=== PATIENT | female | born 1995 | race Caucasian/White ===

== ENCOUNTER 2023-02-21 15:07 | Outpatient (CLI) | payer OTHER, SELFPAY | END 2023-02-21 15:08 | disposition home or self-care (01) | LOC: AMB 02-25 21:01 | PROVIDERS: Visit Provider Family Medicine | DX: S99.912A Unspecified injury of left ankle, initial encounter (principal); V47.0XXA Car driver injured in collision with fixed or stationary object in nontraffic accident, initial encounter; Y92.410 Unspecified street and highway as the place of occurrence of the external cause | CPT/HCPCS: A0425; A0427 ==

== ENCOUNTER 2023-02-21 15:49 | Emergency (ER) | payer OTHER, SELFPAY ==
[2023-02-21] VITALS (22 sets, daily range): BP systolic 109–140; BP diastolic 58–95; PULSE 95–118; RESP 10–20; TEMP 37.1; O2SAT 96–100; BMI 30.7
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
[2023-02-21] MEDS: 0.9 % SODIUM CHLORIDE 1000 ml 1,000 ML IV (16:00)
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
[2023-02-21] MEDS: MORPHINE 4 MG/ML INJ IVP (16:18)
[2023-02-21] MEDS: ONDANSETRON 2 MG/ML inj 4 MG IVP (16:19)
[2023-02-21 17:00] LABS: Basophils Percent Auto 0.3 % (0.0-3.0); Eosinophils Percent Auto 0.3 % (0.0-7.0); Hematocrit 41.4 % (33.0-51.0); Hemoglobin* 13.1 gm/dL (12.0-16.0); Immature Granulocytes Pct Auto 0.7 %; Lymphocytes Percent Auto 13.6 % (20-44); Mean Corpuscular HGB Conc 32 gm/dL (32-36); Mean Corpuscular Hemoglobin 30 pg (26-34); Mean Corpuscular Volume 95 fL (80-100); Monocytes Percent Auto 4.6 % (0.0-11.0); Neutrophils Percent Auto 80.5 % (42.0-72.0); Platelet Count* 284 K/uL (140-440); RDW Coefficient of Variation % 12.3 % (11.5-15.5); Red Blood Count 4.36 m/uL (4.00-5.20); White Blood Count* 14.95 K/uL (4.50-11.00)
[2023-02-21 17:05] LABS: Slide Review Reflex No
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
[2023-02-21 17:13] LABS: Albumin* 4.3 g/dL (3.3-5.0); Chloride* 104 mmol/L (96-114)
[2023-02-21 17:14] LABS: Potassium* 3.4 mmol/L (3.6-5.1); Sodium* 138 mmol/L (135-149)
[2023-02-21 17:16] LABS: Alkaline Phosphatase* 112 U/L (40-150); Anion Gap 10 mEq/L (7-15); Aspartate Amino Transferase* 38 U/L (12-35); Bilirubin Total* 0.3 mg/dL (0.1-1.5); Carbon Dioxide* 24 mmol/L (20-32); Creatinine* 0.6 mg/dL (0.5-1.5); Est. Creatinine Clearance* 111.39; Estimated Glomerular Filt Rate 126 ml/min; Total Protein* 7.8 g/dL (6.0-8.3)
[2023-02-21 17:17] LABS: Alanine Aminotransferase* 22 U/L (4-35); Blood Urea Nitrogen* 12 mg/dL (5-24); Calcium* 8.4 mg/dL (8.4-10.6); Glucose* 98 mg/dL (60-115)
[2023-02-21 17:38] LABS: Appearance Urine Clear (Clear); Bilirubin Urine Negative (Negative); Blood Urine Negative (Negative); Color Urine Yellow (Yellow); Glucose Urine Negative (Negative); Ketones Urine Negative (Negative); Leukocyte Esterase Urine Negative (Negative); Nitrite Urine Negative (Negative); Protein Urine Negative (Negative); Urobilinogen Urine 0.2 (0.2-1.0)
[2023-02-21] MEDS: HYDROmorphone 0.5 mg/0.5 ml inj IVP (17:47)
[2023-02-21 17:50] LABS: Bacteria Urine Few; RBC Urine 0-2 (0-2); Squamous Epithelial Cell Urine Few (None-Few); WBC Urine 0-2 (0-5)
[2023-02-21] MEDS: KETAMINE HCL 100 MG/ML inj 50 MG IVP ×2 (18:20→20:00)
[2023-02-21] MEDS: LORazepam 2 MG/ML inj 0.5 MG IVP (18:20)
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
== END 2023-02-21 20:05 | disposition short-term general hospital (02) ==
PROVIDERS: Emergency Provider Family Medicine
DX: S82.52XA Displaced fracture of medial malleolus of left tibia, initial encounter for closed fracture (principal); S82.455A Nondisplaced comminuted fracture of shaft of left fibula, initial encounter for closed fracture; V46.0XXA Car driver injured in collision with other nonmotor vehicle in nontraffic accident, initial encounter
CPT/HCPCS: 27762; 36415; 71260; 73600; 73610; 74177; 76000; 80053; 81001; 85025; 87086; 96374; 96375; 99285; 99291; G0390; J1170; J2060; J2270; J2405; J3490; J7030; Q9967

== ENCOUNTER 2023-02-21 19:45 | Outpatient (CLI) | payer OTHER, SELFPAY | END 2023-02-21 19:46 | disposition home or self-care (01) | LOC: AMB 03-06 08:13 | PROVIDERS: Visit Provider Family Medicine | DX: S22.20XA Unspecified fracture of sternum, initial encounter for closed fracture (principal); S82.842A Displaced bimalleolar fracture of left lower leg, initial encounter for closed fracture; S36.119A Unspecified injury of liver, initial encounter; V58.5XXA Driver of pick-up truck or van injured in noncollision transport accident in traffic accident, initial encounter; Y92.488 Other paved roadways as the place of occurrence of the external cause | CPT/HCPCS: A0425; A0427 ==